=== PATIENT | female | born 1975 | race Caucasian/White ===

== ENCOUNTER → 2024-03-06 08:08 | Outpatient (REF) | payer OTHER, SELFPAY | LOC: WDC 08:08 | PROVIDERS: ATTENDING PHYSICIAN Obstetrics & Gynecology; FAMILY PHYSICIAN Nurse Practitioner Family | DX: Z12.31 Encounter for screening mammogram for malignant neoplasm of breast (principal) | CPT/HCPCS: 77063; 77067 ==

== ENCOUNTER 2024-05-18 05:52 | Emergency (ER) | payer OTHER, SELFPAY ==
[2024-05-18 05:55] VITALS: BP 140/99
--- NOTE | 2024-05-18 06:10 | ED.GENMED ---
History of Present Illness
<Vani Ba MD, Resident - Last Filed: 05/18/24 13:21>
General
Chief Complaint: Breathing Problem
Source: patient
Time Seen by Provider: 05/18/24 06:03
History of Present Illness
History of Present Illness:
This is a 48 year old female patient with PMH of hypothyroidism who presents to the ER with concerns of headache and chest discomfort. She states that her headache started last week and has been continuos everyday since then as a non radiating dull
ache on the top and back of head that is associated with tingling sensation in the left upper extremity. She had taken ibuprofen which had provided her some relief. No presence of loss of sensation or strenth in upper or lower extremities. Headaches
are not aggravated with any specific position or photophobia. She has had chest tightness/discomfort along with some mild breathing difficulty the past 2-3 days which is not associated with any palpitations, syncope or vision changes. She had gone
to her PCP yesterday who had done an ekg and ordered MRI head. She denies any nausea, vomiting or fever.
Past History
<Vani Ba MD, Resident - Last Filed: 05/18/24 13:21>
Past History
ED Past Medical History: Hypothyroidism
ED Past Surgical History: Gynecological and Tonsilectomy
Social History
Tobacco: Non-smoker
Alcohol: None
Drug: None
Personal:
Living: with family
Review of Systems
<Vani Ba MD, Resident - Last Filed: 05/18/24 13:21>
Review of Systems
Constitutional: Denies fever or chills
Respiratory: Reports trouble breathing
Cardiac: Reports other (chest discomfort); Denies palpitations or syncope
: Denies dysuria
Neurological: Reports headache
Phy Exam
<Vani aB MD, Resident - Last Filed: 05/18/24 13:21>
General Physical Exam
General Presentation: well appearing and no apparent distress
Cardiovascular Exam
Cardiovascular Exam: regular rate/rhythm and no murmur
Heart Sounds: normal
Pulmonary Exam
Pulmonary Exam: lungs clear and no crackles
Gastrointestinal Exam
Gastrointestinal Exam: non tender, soft and non distended
Neurological Exam
Neurological Exam: oriented x3, no motor deficits and normal gait
Musculoskeletal Exam
Musculoskeletal Exam: no edema
Skin Exam
Skin Exam: warm/dry
Psychiatric Exam
Psychiatric Exam: normal mood/affect
Scores
<Vani Ba MD, Resident - Last Filed: 05/18/24 13:21>
Heart Failure Risk
Heart Failure Risk Score: Not Applicable
Course
<Vani Ba MD, Resident - Last Filed: 05/18/24 13:21>
Orders/Labs/Results
Orders:
Orders
05/18/24 05:53
EKG [Electrocardiogram (*1)] Urgent
Reason for Study: Shortness of Breath
EKG- Treatment ONCE
05/18/24 07:03
CBC/With Diff [Complete Blood Count/With Diff] Urgent
CMP [Comprehensive Metabolic Panel] Urgent
Troponin I Urgent
05/18/24 07:58
COVID-19 Antigen Urgent
Source: Nasal Swab
Abnormal Lab Results
05/18/24
07:03
WBC 4.3 L 10^3/uL
(4.8-10.8)
BUN 19 H mg/dl
(7-17)
Glucose 109 H mg/dl
(70-99)
AST 44 H U/L
(14-36)
ALT 68 H U/L
(0-35)
05/18/24 07:03
05/18/24 07:03
Vital Signs
Initial and Last Documented VS:
Initial Vital Signs
Temp Pulse Resp BP Pulse Ox
98.7 F 96 20 140/99 100
05/18/24 05:55 05/18/24 05:55 05/18/24 05:55 05/18/24 05:55 05/18/24 05:55
Last Documented Vital Signs
Temp Pulse Resp BP Pulse Ox
98.7 F 72 16 138/95 98
05/18/24 05:55 05/18/24 07:00 05/18/24 07:04 05/18/24 08:05 05/18/24 06:15
<Zeyad Condon, DO - Last Filed: 05/18/24 09:55>
Orders/Labs/Results
Orders:
Orders
05/18/24 05:53
EKG [Electrocardiogram (*1)] Urgent
Reason for Study: Shortness of Breath
EKG- Treatment ONCE
05/18/24 07:03
CBC/With Diff [Complete Blood Count/With Diff] Urgent
CMP [Comprehensive Metabolic Panel] Urgent
Troponin I Urgent
05/18/24 07:58
COVID-19 Antigen Urgent
Source: Nasal Swab
Abnormal Lab Results
05/18/24
07:03
WBC 4.3 L 10^3/uL
(4.8-10.8)
BUN 19 H mg/dl
(7-17)
Glucose 109 H mg/dl
(70-99)
AST 44 H U/L
(14-36)
ALT 68 H U/L
(0-35)
05/18/24 07:03
05/18/24 07:03
Vital Signs
Initial and Last Documented VS:
Initial Vital Signs
Temp Pulse Resp BP Pulse Ox
98.7 F 96 20 140/99 100
05/18/24 05:55 05/18/24 05:55 05/18/24 05:55 05/18/24 05:55 05/18/24 05:55
Last Documented Vital Signs
Temp Pulse Resp BP Pulse Ox
98.7 F 72 16 138/95 98
05/18/24 05:55 05/18/24 07:00 05/18/24 07:04 05/18/24 08:05 05/18/24 06:15
<Vani Ba MD, Resident - Last Filed: 05/18/24 13:21>
MDM/Problems Addressed
Differential Diagnosis Includes:
Benign paroxsymal positional vertigo, migraine, cervical radiculopathy,electrolyte abnormality
MDM/Problems Addressed:
Normal finger nose test, heel to live test. Negative rombergs. CBC/CMP/Trop added for chest discomfort and upper extremity tingling. EKG with NSR. Prior 2022 MRI brain showed small central disc-osteophyte complex at C5/C6. Mildly elevated LFTs,
covid negative likely due to viral cause. Likely migraine vs cervical radiculopathy vs tension headache. Pt stable for discharge with instructions to further follow up with PCP for outpatient head/neck imaging.
<Vani Ba MD, Resident - Last Filed: 05/18/24 13:21>
*Critical Care Note
Total Time (30-74mins, 75-104mins- exclusive of procedures): Not Applicable
ED Attending Note
<Vani Ba MD, Resident - Last Filed: 05/18/24 13:21>
-
Portions of this chart may have been created with voice recognition software.� Occasional wrong word or��sound alike� substitutions may have occurred due to the inherent limitations of voice recognition software.
<Zeyad Condon, DO - Last Filed: 05/18/24 09:55>
ED Attending Note
Patient seen and examined by attending physician: Yes
I performed a history and physical exam of patient and discussed management with resident, I reviewed resident's note and agree with documented findings and plan of care.: Yes
ED Attending Note:
I have reviewed and agree with history and treatment plan by Vani Ba MD. exam revealed
Physical Exam
General: no apparent distress, not acutely ill
Neck: supple. no meningeal signs. normal posterior pharynx
Heart: s1/s2 regular rate and rhythm, no murmur. equal radial
pulses.
HEENT: Pupils equal round reactive to light, EOMI
Lungs: no acute respiratory distress. clear bilaterally
Abdomen: normal bowel sounds. not tender. no CVAT
Neuro: alert and oriented. no focal neurological deficits cranial nerves II through XII intact
Skin: no rash
Psychiatric: well kept. interactive and cooperative
Extremities: no edema. no calf tenderness. negative homans. good distal pulses
Patient with dizziness and headache, suspect possible migraine versus tension headache versus viral cause. Do not suspect CVA, intracranial hemorrhage or tumor. Patient stable for discharge to follow-up with primary care
Discharge Plan
Departure
Patient Disposition: Home (Routine Discharge)
Date of Disposition: 05/18/24
Time of Disposition: 08:34
Patient with high blood pressure during this ER visit?: Yes
Discharge Problem:
Headache, Cervical radiculopathy
Prescriptions:
No Action
levothyroxine
75 mcg PO DAILY
meclizine 25 mg tablet
25 mg PO TID PRN (Reason: dizziness) Qty: 10 0RF
Activity Restrictions/Additional Instructions:
If experiencing symptoms such as worsening headaches, vomiting or worsening numbness in extremities please return to the ER. Follow up with primary care physician for further work for cervical radiculopathy such as MRI brain.
Interventions
Interventions:
*Risk Screen - Suicide Last Done: 05/18/24 05:55
*General Assessment Last Done: 05/18/24 05:55
*Neglect/Abuse Screening Last Done: 05/18/24 05:55
ED- Fall Risk Assessment Last Done: 05/18/24 08:46
*ED COVID-19 Vaccine History Last Done: 05/18/24 05:55
*Nursing Disposition Last Done: 05/18/24 08:46
ED- Cardiac Assessment Last Done: 05/18/24 07:05
ED- Pulmonary Assessment Last Done: 05/18/24 07:05
Discharge Date and Time
Discharge Date/Time: 05/18/24 08:55
Print Language: [id number]
[2024-05-18 07:08] LABS: % Basophils 0.9 % (0-2); % Eosinophils 4.2 % (0-6); % Lymphocytes 31.8 % (20.5-51.1); % Monocytes 7.9 % (1.7-9.3); % Neutrophils 55.2 % (42.2-75.2); Absolute Eosinophils 0.2 10^3/uL (0-0.7); Absolute Lymphocytes 1.4 10^3/uL (1.2-3.4); Absolute Monocytes 0.3 10^3/uL (0.1-0.6); Absolute Neutrophils 2.4 10^3/uL (1.4-6.5); Hematocrit 39.2 % (37.0-47.0); Hemoglobin 13.4 g/dL (12.0-16.0); Mean Corp Hgb Conc. 34.2 g/dL (33.0-37.0); Mean Corpuscular Hgb 30.7 pg (27.0-31.0); Mean Corpuscular Volume 89.7 fL (81.0-99.0); Mean Platelet Volume 9.4 fL (7.4-10.4); Nucleated Red Blood Cells % 0 %; Platelet Count 155 10^3/uL (130-400); Red Blood Cell Count 4.37 10^6/uL (4.20-5.40); Red Cell Dist. Width 11.7 % (11.5-14.5); White Blood Cell Count 4.3 10^3/uL (4.8-10.8)
[2024-05-18 07:22] LABS: ALT (SGPT) 68 U/L (0-35); AST (SGOT) 44 U/L (14-36); Albumin 4.3 g/dl (3.5-5.0); Alkaline Phosphatase 53 U/L (38-126); Blood Urea Nitrogen 19 mg/dl (7-17); Calcium 9.1 mg/dl (8.4-10.2); Carbon Dioxide 24 mmol/L (22-30); Chloride 106 mmol/L (98-107); Glucose 109 mg/dl (70-99); Potassium 4.2 mmol/L (3.5-5.1); Sodium 140 mmol/L (135-145); Total Bilirubin 0.5 mg/dl (0.2-1.3); Total Protein 6.5 g/dl (6.3-8.2); eGFR > 60.00
[2024-05-18 07:32] LABS: Troponin I < 0.012 ng/ml
[2024-05-18 08:05] VITALS: BP 138/95
[2024-05-18 08:24] LABS: COVID-19 Antigen Negative (Negative)
== END 2024-05-18 08:55 | disposition home or self-care (01) ==
LOC: EMR 05:52
PROVIDERS: Student in an Organized Health Care Education/Training Program; EMERGENCY PHYSICIAN Emergency Medicine; FAMILY PHYSICIAN Nurse Practitioner Family
DX: R51.9 Headache, unspecified (principal); M54.12 Radiculopathy, cervical region; E03.9 Hypothyroidism, unspecified
CPT/HCPCS: 99283; 80053; 84484; 85025; 87811; 93005

== ENCOUNTER → 2024-05-25 08:54 | Outpatient (REF) | payer OTHER, SELFPAY | LOC: WDC 08:54 | PROVIDERS: ATTENDING PHYSICIAN Obstetrics & Gynecology; FAMILY PHYSICIAN Nurse Practitioner Family | DX: R92.30 Dense breasts, unspecified (principal) | CPT/HCPCS: 76641 ==

== ENCOUNTER → 2024-06-01 08:34 | Outpatient (REF) | payer OTHER, SELFPAY | LOC: MRI 08:34 | PROVIDERS: ATTENDING PHYSICIAN Nurse Practitioner Family | DX: R51.9 Headache, unspecified (principal) | CPT/HCPCS: 70553; A9575 ==

== ENCOUNTER → 2024-06-17 15:02 | Outpatient (REF) | payer OTHER, SELFPAY | LOC: RCS 15:02 | PROVIDERS: ATTENDING PHYSICIAN Nurse Practitioner Family | DX: R07.9 Chest pain, unspecified (principal) | CPT/HCPCS: 93017; 93306 ==

== ENCOUNTER → 2025-03-12 07:55 | Outpatient (REF) | payer OTHER, SELFPAY | LOC: WDC 07:55 | PROVIDERS: ATTENDING PHYSICIAN Obstetrics & Gynecology; FAMILY PHYSICIAN Nurse Practitioner Family | DX: Z12.31 Encounter for screening mammogram for malignant neoplasm of breast (principal) | CPT/HCPCS: 77063; 77067 ==

== ENCOUNTER → 2025-03-16 09:26 | Outpatient (REF) | payer OTHER, SELFPAY | LOC: WDC 09:26 | PROVIDERS: ATTENDING PHYSICIAN Obstetrics & Gynecology; FAMILY PHYSICIAN Nurse Practitioner Family | DX: R92.8 Other abnormal and inconclusive findings on diagnostic imaging of breast (principal) | CPT/HCPCS: 76642 ==